=== PATIENT | male | born 1960 | race Caucasian/White ===

== ENCOUNTER → 2023-10-28 06:53 | Outpatient (REF) | payer OTHER, SELFPAY | LOC: RAD 06:53 | PROVIDERS: ATTENDING PHYSICIAN Nurse Practitioner Family; FAMILY PHYSICIAN Family Medicine | DX: R10.9 Unspecified abdominal pain (principal) | CPT/HCPCS: 74176 ==

== ENCOUNTER → 2023-12-21 14:51 | Outpatient (REF) | payer OTHER, SELFPAY | LOC: RAD 14:51 | PROVIDERS: ATTENDING PHYSICIAN Specialist; FAMILY PHYSICIAN Family Medicine | DX: R60.9 Edema, unspecified (principal) | CPT/HCPCS: 93971 ==

== ENCOUNTER → 2024-01-21 10:17 | Outpatient (REF) | payer OTHER, SELFPAY | LOC: RCS 10:17 | PROVIDERS: ATTENDING PHYSICIAN Internal Medicine Cardiovascular Disease; FAMILY PHYSICIAN Family Medicine | DX: I25.10 Atherosclerotic heart disease of native coronary artery without angina pectoris (principal); C64.9 Malignant neoplasm of unspecified kidney, except renal pelvis | CPT/HCPCS: 93306; 93356 ==

== ENCOUNTER 2024-01-21 11:32 | Emergency (ER) | payer OTHER, SELFPAY ==
[2024-01-21 11:34] VITALS: BP 130/73
--- NOTE | 2024-01-21 13:03 | ED.MUSCINJ ---
HPI-Injury
General
Chief Complaint: Fall
Source: patient
Exam Limitations: none
Time Seen by Provider: 01/21/24 11:54
Nursing documentation reviewed up to this point in time: agreed with
History of Present Illness-Injury
Initial Injury comments:
63-year-old male with history of renal cancer with mets to the bone presents stating he stepped on something in his yard last p.m. falling onto back more towards his left side, now with pain in posterior left ribs.
S/P bilateral pleural effusion drainage 3 days ago.
Hx T12 fx after high dose radiation treatments, last treatment 3 days ago.
Denies SOB or any other injury.
Past History
Past History
ED Past Medical History: CAD, Cancer, HTN, Hypercholesterolemia, NIDDM, VT and Other (Renal cancer with mets to the bones)
ED Past Surgical History: Cardiac (Stent) and Other (Right CA, testicle removed)
Social History
Tobacco: Non-smoker
Alcohol: Occasional
Personal:
Living: with family
Employment: Employed
Family History
Family History: CAD and Cancer
Review of Systems
Review of Systems
Allergies reviewed?: Yes
All Other Systems: ROS reviewed and negative except as documented in HPI and ROS
Constitutional: Denies fever
Respiratory: Denies cough or trouble breathing
ABD/GI: Denies abdominal pain
Musculoskeletal: Reports back pain (left mid rib area); Denies neck pain
Skin: Reports other (Pain is on both sides of back from recent drainage of pleural effusions)
Neurological: Denies dizzy, headache or weakness
Phy Exam
Physical Exam
Physical Exam:
GENERAL: No acute distress. A&Ox3.
CONSTITUTIONAL: Afebrile.
EYES: Clear, conjunctivae normal
RESPIRATORY: Regular respirations, nonlabored, lungs clear.
CARDIOVASCULAR: Regular rate and rhythm, no murmurs, no rubs.
GI: Soft, nontender
MUSCULOSKELETAL: Moves with ease. Well perfused.
SKIN: Warm, dry, pale. Band aids both sides mid back from recent pleural effusion drainage, surrounding skin is normal. Tender mid posterior back, no swelling or discoloration here.
PSYCH: Normal mood and affect. Well kept, interactive and appropriate
NEUROLOGIC: Awake, alert and oriented. No focal neurological deficits
Injury Course
Orders/Labs/Results
Orders:
Orders
01/21/24 11:38
CR Ribs-left 3 Vw W/pa Chest Urgent
Comment:
Reason For Exam: fall
MDM/Problems Addressed
Differential Diagnosis Includes:
rib fracture, contusion
MDM/Problems Addressed:
63-year-old male with history of renal cancer with mets to the bone presents stating he stepped on something in his yard last p.m. falling onto back more towards his left side, now with pain in posterior left ribs.
S/P bilateral pleural effusion drainage 3 days ago.
Hx T12 fx after high dose radiation treatments, last treatment 3 days ago.
Denies SOB or any other injury.
Xray left ribs w chest radiology report read: IMPRESSION:
No findings to confirm recent left rib fracture.
Mild bibasilar opacification most likely representing subsegmental atelectasis with possible tiny bilateral pleural effusions.
copy of report given to pt.
He has a rib support at home to use if needed.
*Critical Care Note
Total Time (30-74mins, 75-104mins- exclusive of procedures): Not Applicable
ED Attending Note
-
Portions of this chart may have been created with voice recognition software.� Occasional wrong word or��sound alike� substitutions may have occurred due to the inherent limitations of voice recognition software.
Discharge Plan
Departure
Patient Disposition: Home (Routine Discharge)
Date of Disposition: 01/21/24
Time of Disposition: 13:00
Patient with high blood pressure during this ER visit?: No
Condition: Fair
Discharge Problem:
Contusion of rib on left side, Fall from slip, trip, or stumble
Instructions: Rib injury in adults, Contusion (DC)
Prescriptions:
No Action
aspirin 325 MG tablet
325 mg PO DAILY
clopidogrel 75 MG tablet
75 mg PO DAILY
rosuvastatin 5 MG tablet
5 mg PO QPM
Patient Comments:
only takes 3 times a week due to joint pain Mon.,Wed., And Fri.
metoprolol tartrate 25 MG tablet
12.5 mg PO BID
metformin 500 MG tablet
500 mg PO DAILY
Patient Comments:
patients called daugter for the medication and dosage of this medicaion
Referrals:
Param Oliva MD [Family Provider] - As needed
Activity Restrictions/Additional Instructions:
As we discussed, there are no obvious fractures or other acute abnormalities on your x-ray.
Interventions
Interventions:
*Risk Screen - Suicide Last Done: 01/21/24 13:06
*General Assessment Last Done: 01/21/24 11:34
*Neglect/Abuse Screening Last Done: 01/21/24 13:06
ED- Fall Risk Assessment Last Done: 01/21/24 13:06
*ED COVID-19 Vaccine History Last Done: 01/21/24 12:19
*Nursing Disposition Last Done: 01/21/24 13:06
ED-Musculoskeletal Assessment Last Done: 01/21/24 12:18
ED- Neurological Assessment Last Done: 01/21/24 12:18
ED-Skin Assessment Last Done: 01/21/24 12:18
Discharge Date and Time
Discharge Date/Time: 01/21/24 13:10
Print Language: FRISIAN
== END 2024-01-21 13:10 | disposition home or self-care (01) ==
LOC: EMR 11:32
PROVIDERS: EMERGENCY PHYSICIAN Emergency Medicine; FAMILY PHYSICIAN Internal Medicine Gastroenterology
DX: S20.222A Contusion of left back wall of thorax, initial encounter (principal); W18.09XA Striking against other object with subsequent fall, initial encounter; C64.9 Malignant neoplasm of unspecified kidney, except renal pelvis; C79.51 Secondary malignant neoplasm of bone; I25.10 Atherosclerotic heart disease of native coronary artery without angina pectoris; I10 Essential (primary) hypertension; E78.00 Pure hypercholesterolemia, unspecified; E11.9 Type 2 diabetes mellitus without complications; Z95.5 Presence of coronary angioplasty implant and graft; Z90.79 Acquired absence of other genital organ(s)
CPT/HCPCS: 99283; 71101